=== PATIENT | male | born 1980 | race Caucasian/White ===

== ENCOUNTER 2020-02-14 21:08 | Emergency (ER) | payer MEDICAID ==
[~2020-02-14] VITALS: Ht 167.6 cm; Wt 93.0 kg
[2020-02-14] MEDS ORDERED: KETOROLAC 60MG/2ML VIAL IM STA (21:30)
[2020-02-14 23:57] VITALS: BP 130/79
== END 2020-02-14 23:59 | disposition home or self-care (01) ==
LOC: ER 21:08
DX: M54.5 Low back pain (principal); M79.672 Pain in left foot
CPT/HCPCS: 72100; 73590; 96372; 99284; J1885